=== PATIENT | male | born 1960 | race Caucasian/White ===

== ENCOUNTER 2024-05-14 16:18 | Emergency (ER) | payer BC, SELFPAY ==
[2024-05-14 16:25] VITALS: BP 143/88
[2024-05-14 16:57] LABS: % Basophils 0.6 % (0-2); % Eosinophils 1.7 % (0-6); % Immature Granulocytes 1.1 % (0-0.5); % Lymphocytes 30.1 % (20.5-51.1); % Monocytes 11.3 % (1.7-9.3); % Neutrophils 55.2 % (42.2-75.2); Absolute Basophils 0.1 10^3/uL (0-0.2); Absolute Eosinophils 0.2 10^3/uL (0-0.7); Absolute Immature Granulocytes 0.1 10^3/uL (0-0.05); Absolute Lymphocytes 3.1 10^3/uL (1.2-3.4); Absolute Monocytes 1.2 10^3/uL (0.1-0.6); Absolute Neutrophils 5.7 10^3/uL (1.4-6.5); Hemoglobin 14.7 g/dL (13.0-18.0); Mean Corp Hgb Conc. 33.4 g/dL (33.0-37.0); Mean Corpuscular Volume 86.8 fL (80.0-94.0); Mean Platelet Volume 9.8 fL (7.4-10.4); Nucleated Red Blood Cells % 0 % (-); Platelet Count 183 10^3/uL (130-400); Red Blood Cell Count 5.07 10^6/uL (4.70-6.10); Red Cell Dist. Width 13.7 % (11.5-14.5); White Blood Cell Count 10.4 10^3/uL (4.8-10.8)
[2024-05-14 17:05] LABS: ALT (SGPT) 28 U/L (0-50); AST (SGOT) 24 U/L (17-59); Albumin 4.2 g/dl (3.5-5.0); Alkaline Phosphatase 89 U/L (38-126); Blood Urea Nitrogen 23 mg/dl (9-20); Calcium 9.2 mg/dl (8.4-10.2); Carbon Dioxide 25 mmol/L (22-30); Chloride 101 mmol/L (98-107); Glucose 94 mg/dl (70-99); Potassium 4.2 mmol/L (3.5-5.1); Sodium 135 mmol/L (135-145); Total Bilirubin 0.5 mg/dl (0.2-1.3); eGFR > 60.00
[2024-05-14 17:14] LABS: NT-proBNP 59.2 pg/ml
--- NOTE | 2024-05-14 20:16 | ED.GENMED ---
History of Present Illness
General
Chief Complaint: Breathing Problem
Source: patient
Exam Limitations: none
Time Seen by Provider: 05/14/24 19:27
History of Present Illness
History of Present Illness:
This is a 63 year old male that comes in with c/o SOB. States that on April 19 he had the Upper GI virus and was vomiting for about a week. States that he lost 20 pounds and then he had a fever for a week. States that he went back to work on
May.06. State that he worked last week but he was very fatigued and when he got home he would go to bed. States that the started to feel better. Yesterday he was fatigued again and today he did more physical work. State that he was very SOB so he
wet to the . States that he was told that his ECG was abnormal to come to the ER. States that he has been SOB and had some nausea. Denies any fever, chills, chest pain, abd pain, vomiting, diarrhea, headache, dizziness, urinary burning.
Past History
Past History
ED Past Medical History: HTN, Hypercholesterolemia and Other (Myasthenia gravis)
ED Past Surgical History: Orthopedic (Right metacrapal pinning)
Social History
Tobacco: Non-smoker
Alcohol: Occasional
Drug: Marijuana
Personal:
Living: with family
Employment: Employed
Review of Systems
Review of Systems
All Other Systems: ROS reviewed and negative except as documented in HPI and ROS
Constitutional: Reports no symptoms; Denies fever or chills
EENT: Reports no symptoms
Respiratory: Reports trouble breathing; Denies cough
Cardiac: Reports no symptoms; Denies chest pain
ABD/GI: Reports nausea; Denies abdominal pain, vomiting or diarrhea
: Reports no symptoms; Denies dysuria, frequency or urgency
Musculoskeletal: Reports no symptoms
Skin: Reports no symptoms
Neurological: Reports no symptoms; Denies dizzy or headache
Psychiatric: Reports no symptoms
Phy Exam
General Physical Exam
General Presentation: well appearing and no apparent distress
General age: appears stated age
General Skin: warm and dry
General Habitus: normal
General Mental: alert
General Hydration: dry mucous membranes
ENT Exam
ENT Exam: TM's normal, pharynx normal and neck supple
Eye Exam
Eye Exam: EOMI
Cardiovascular Exam
Cardiovascular Exam: regular rate/rhythm, no edema and normal peripheral pulses
Pulmonary Exam
Pulmonary Exam: lungs clear, no respiratory distress, no rales, chest non tender, no crackles, no rhonchi, no wheezing and no cough
Gastrointestinal Exam
Gastrointestinal Exam: normal bowel sounds, non tender, soft, no organomegaly, no pulsatile mass and non distended
Musculoskeletal Exam
Musculoskeletal Exam: full ROM and no edema
Skin Exam
Skin Exam: normal color, warm/dry, no rash and no petechia
Psychiatric Exam
Psychiatric Exam: normal mood/affect
Scores
Heart Failure Risk
Heart Failure Risk Score: Not Applicable
Course
Orders/Labs/Results
Orders:
Orders
05/14/24 16:20
EKG [Electrocardiogram (*1)] Urgent
Reason for Study: Palpitations
05/14/24 16:21
EKG- Treatment ONCE
05/14/24 16:36
Complete Blood Count/With Diff Urgent
Comprehensive Metabolic Panel Urgent
NT-proBNP Urgent
TSH Reflex To Free T4 Urgent
Comment: ADD ON PER B. SEIPT
05/14/24 19:29
Add On- LAB Urgent
Tests Added?: TSH with free T4
CR Chest - 2 Views Urgent
Comment:
Reason For Exam: SOB
05/14/24 21:51
D-Dimer Urgent
Troponin I Urgent
Abnormal Lab Results
05/14/24
16:36
Abs Immat Gran (auto) 0.1 H 10^3/uL
(0-0.05)
Absolute Monos (auto) 1.2 H 10^3/uL
(0.1-0.6)
Immature Gran % 1.1 H %
(0-0.5)
Monocytes % 11.3 H %
(1.7-9.3)
BUN 23 H mg/dl
(9-20)
05/14/24 16:36
05/14/24 16:36
Dehydration. Pro-BNP 59.2, Troponin <0.012, D-dimer 0.38
Vital Signs
Initial and Last Documented VS:
Initial Vital Signs
Temp Pulse Resp BP Pulse Ox
98.7 F 80 18 143/88 100
05/14/24 16:25 05/14/24 16:25 05/14/24 16:25 05/14/24 16:25 05/14/24 16:25
Last Documented Vital Signs
Temp Pulse Resp BP Pulse Ox
98.7 F 69 11 125/80 98
05/14/24 16:25 05/14/24 22:00 05/14/24 22:00 05/14/24 22:00 05/14/24 22:00
MDM/Problems Addressed
Differential Diagnosis Includes:
SOB, Dehydration. PE,
MDM/Problems Addressed:
This is a 63 year old male that comes in with c/o SOB. States that he was going some physical work today and he was very SOB. States that he went to an and was told that his ECG was abnormal.
Will get labs, ECG, Chest x-ray.
Back into see patient and . Explained that his blood work show Dehydration. Patient D-dimer is normal along with the Troponin. Chest x-ray is normal. 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 Patient to follow up with the Neurologist and his family doctor for further evaluation. Patient to return with any concerns.
Chronic conditions affecting care:
Myasthenia gravis
Acute Exacerbation and/or Progression of Chronic Illness:
NA
*Radiology
Radiology exam reviewed: preliminary read by ED provider (Chest- negative for active disease) and radiology read reviewed (Chest-No acute cardiopulmonary process)
*Pulse Oximetry
Patient hypoxic: no
*EKG
Interpreted by ED Provider?: Yes
Heart Rate: 70
Rate: normal
Rhythm: sinus
[place]: left axis deviation
Interval: normal interval
QRS Pattern: normal QRS
Ischemia: no ischemia
*Consulting Services Manager Interpretation
Rate: Consulting Services Manager- N/A
*Critical Care Note
Total Time (30-74mins, 75-104mins- exclusive of procedures): Not Applicable
ED Attending Note
-
Portions of this chart may have been created with voice recognition software.� Occasional wrong word or��sound alike� substitutions may have occurred due to the inherent limitations of voice recognition software.
Discharge Plan
Departure
Patient Disposition: Home (Routine Discharge)
Date of Disposition: 05/14/24
Time of Disposition: 22:38
Patient with high blood pressure during this ER visit?: No
Condition: Good
Covid-19: Not Applicable
Discharge Problem:
SOB (shortness of breath)
Instructions: Shortness of Breath (Dyspnea) (DC)
Referrals:
Darwin Hannon MD [Family Provider] - Follow up in 2-3 days
Activity Restrictions/Additional Instructions:
As discussed, your blood work shows that you are Dehydrated. Your chest x--ray is normal and the D-dimer is negative for any pulmonary embolism. Your Troponin is normal along with your ECG. Please increase your water intake to 8-8oz glasses daily.
Please follow up with your Family doctor and your Neurologist for further evaluation. IF YOU HAVE INCREASED SHORTNESS OF BREATH, CHEST PAIN, OR YOU HAVE ANY OTHER CONCERNS PLEASE RETURN TO THE EMERGENCY ROOM.
Interventions
Interventions:
*Risk Screen - Suicide Last Done: 05/14/24 16:25
*General Assessment Last Done: 05/14/24 16:25
*Neglect/Abuse Screening Last Done: 05/14/24 20:09
ED- Fall Risk Assessment Last Done: 05/14/24 20:09
*ED COVID-19 Vaccine History Last Done: 05/14/24 16:25
ED- Cardiac Assessment Last Done: 05/14/24 20:09
ED- Pulmonary Assessment Last Done: 05/14/24 20:09
Discharge Date and Time
Print Language: CENTRAL AFRICAN
[2024-05-14 20:36] LABS: TSH Reflex To Free T4 2.22 uIU/ml (0.47-4.68)
[2024-05-14 21:50] VITALS: BP 121/75
[2024-05-14 22:00] VITALS: BP 125/80
[2024-05-14 22:14] LABS: D-Dimer 0.38 ug/mlFEU (0.00-0.50)
[2024-05-14 22:15] VITALS: BMI 35.6
[2024-05-14 22:26] LABS: Troponin I < 0.012 ng/ml
[2024-05-14 22:30] VITALS: BP 118/79
== END 2024-05-14 23:09 | disposition home or self-care (01) ==
LOC: EMR 16:18
PROVIDERS: Clinical Nurse Specialist Family Health; Student in an Organized Health Care Education/Training Program; EMERGENCY PHYSICIAN Emergency Medicine; FAMILY PHYSICIAN Family Medicine
DX: R06.02 Shortness of breath (principal); I10 Essential (primary) hypertension; E78.00 Pure hypercholesterolemia, unspecified; G70.00 Myasthenia gravis without (acute) exacerbation; E86.0 Dehydration
CPT/HCPCS: 99283; 71046; 80053; 83880; 84443; 84484; 85025; 85379; 93005